=== PATIENT | female | born 1990 | race Asian ===

== ENCOUNTER 2021-07-09 04:14 | Emergency (ER) | payer MEDICAID ==
[~2021-07-09] VITALS: Ht 160 cm; Wt 68.2 kg
[2021-07-09 04:16] VITALS: BP 161/115
[2021-07-09] MEDS ORDERED: KETOROLAC TROMETHAMINE 30 MG/ML VIAL IM ONE (05:45)
[2021-07-09 06:02] LABS: APPEARANCE,URINE CLEAR (CLEAR); BILIRUBIN,URINE NEGATIVE (NEGATIVE); GLUCOSE, URINE (UA) NEGATIVE (NEGATIVE); KETONES,URINE NEGATIVE (NEGATIVE); LEUKOCYTE ESTERASE ,URINE NEGATIVE (NEGATIVE); NITRATE,URINE NEGATIVE (NEGATIVE); OCCULT BLOOD,URINE LARGE (NEGATIVE); PH,URINE 6.5 (5.0-8.0); PROTEIN,URINE NEGATIVE (NEGATIVE); UROBILINOGEN,URINE 0.2 mg/dL (<=1.0)
[2021-07-09 06:04] LABS: BACTERIA,URINE Rare /HPF (None Seen); WBC,URINE 0-2 /HPF (0-5)
[2021-07-09] MEDS ORDERED: BACLOFEN 10 MG TABLET PO ONE (06:30)
[2021-07-09] MEDS ORDERED: ACETAMINOPHEN/CODEINE 300-30 MG TABLET PO ONE (06:30)
[2021-07-09] MEDS ORDERED: ACET-2080 PO (07:11)
[2021-07-09] MEDS ORDERED: IBUP-2070 PO (07:11)
[2021-07-09] MEDS ORDERED: BACL10TA PO (07:11)
== END 2021-07-09 07:21 | disposition home or self-care (01) ==
LOC: EMS 04:15
DX: M54.50 Low back pain, unspecified (principal)
CPT/HCPCS: 81001; 81025; 84703; 96372; 99283; J1885